=== PATIENT | male | born 1960 | race Caucasian/White ===

== ENCOUNTER → 2020-03-26 | Outpatient (CLI) | payer OTHER ==
--- NOTE | 2020-03-26 13:50 | REP ---
Right lower extremity Duplex Doppler venous ultrasound: Real time compression and duplex Doppler interrogation of the right lower extremity deep venous system is performed. The right common femoral, superficial femoral and popliteal veins are fully compressible with transducer pressure and demonstrate normal spontaneous and phasic flow, without evidence of deep venous thrombosis. Impression: No evidence of deep venous thrombosis of the right lower extremity femoral popliteal venous system.
== END ==
LOC: M WHC 11:23
PROVIDERS: ATTEND Physician Assistant Surgical
DX: M25.561 Pain in right knee (principal)

== ENCOUNTER → 2021-05-16 | Outpatient (REF) | payer OTHER | LOC: M LAB REF 16:06 | PROVIDERS: ATTEND Internal Medicine | DX: N52.9 Male erectile dysfunction, unspecified (principal) ==

== ENCOUNTER → 2022-03-07 | Outpatient (REF) | payer OTHER | LOC: M LAB REF 17:43 | PROVIDERS: ATTEND Orthopaedic Surgery | DX: D18.01 Hemangioma of skin and subcutaneous tissue (principal) ==